=== PATIENT | male | born 1995 | race Caucasian/White ===

== ENCOUNTER 2023-12-03 19:49 | Emergency (ER) | payer SELFPAY ==
[~2023-12-03] VITALS: Ht 180.3 cm; Wt 61.4 kg
[2023-12-03 19:54] VITALS: BP 113/80; PULSE 88; TEMP 97.4
[2023-12-03] MEDS ORDERED: Clindamycin 150 MG CAP PO ONE (20:45)
[2023-12-03] MEDS ORDERED: CLEOCIN HCL300 MG PO (20:54)
== END 2023-12-03 20:53 | disposition home or self-care (01) ==
LOC: COL.ER 19:49
DX: K04.7 Periapical abscess without sinus (principal); F17.200 Nicotine dependence, unspecified, uncomplicated